=== PATIENT | female | born 1990 | race African-American/Black ===

== ENCOUNTER 2017-08-27 18:06 | Emergency (ER) | payer SELFPAY, OTHER | END 2017-08-27 19:40 | disposition home or self-care (01) | LOC: ER 18:06 | DX: S90.112A Contusion of left great toe without damage to nail, initial encounter (principal); W23.1XXA Caught, crushed, jammed, or pinched between stationary objects, initial encounter; Y93.89 Activity, other specified; Y92.89 Other specified places as the place of occurrence of the external cause; Y99.8 Other external cause status | CPT/HCPCS: 73630; 99284 ==

== ENCOUNTER 2018-11-23 21:34 | Emergency (ER) | payer SELFPAY ==
[~2018-11-23] VITALS: Ht 170.2 cm; Wt 127.0 kg
[~2018-11-23 21:34] MED LIST: NAPR-514 PO; OXYC1TAB15 PO
[2018-11-23 22:19] VITALS: BP 150/100
[2018-11-23] MEDS ORDERED: DIPHTH,PERTUSS(ACELL),TET TOX 0.5 ML DISP.SYRIN. VAX IM ONE (23:45)
[2018-11-23] MEDS ORDERED: LIDOCAINE WITH 8.4% SOD BICARB 3 ML DISP.SYRIN. INJ ONE (23:45)
--- NOTE | 2018-11-23 23:50 | PHYS DOC ---
Past Medical History Past Medical History: Abscess, Asthma (BERNARD SHIN APRN) Past Surgical History: (BERNARD SHIN APRN) Alcohol Use: None Drug Use: None (BERNARD SHIN APRN) Adult General Chief Complaint Chief Complaint: ABSCESS HPI HPI Patient is a 28 year old female with history of abscesses who presents today complaining of right axilla abscess that began 10 days ago. Denies any fever or drainage from the area. (BERNARD SHIN APRN) Review of Systems Review of Systems Constitutional: Denies fever or chills [] Musculoskeletal: Denies back pain or joint pain [] Integument: Reports right axilla abscess Neurologic: Denies headache, focal weakness or sensory changes [] All other systems were reviewed and found to be within normal limits, except as documented in this note. (BERNARD SHIN APRN) Current Medications Current Medications Current Medications Medications (Trade) Dose Ordered Sig/Garcia Start Time Stop Time Status Last Admin Dose Admin Diphtheria/ Tetanus/Acell Pertussis (Boostrix) 0.5 ml ONCE ONCE 11/23/18 23:45 11/23/18 23:46 DC 11/24/18 00:17 0.5 ML Lidocaine/Sodium Bicarbonate (Buffered Lidocaine 1%) 3 ml 1X ONCE 11/23/18 23:45 11/23/18 23:46 DC 11/24/18 00:18 3 ML (FIORELLA SUMMERS DO) Allergies Allergies Allergies Coded Allergies Type Severity Reaction Last Updated Verified aspirin Allergy Unknown 11/23/18 Yes (FIORELLA SUMMERS DO) Physical Exam Physical Exam Constitutional: Well developed, well nourished, no acute distress, non-toxic appearance. [] Skin: Right axilla with an indurated area approximately 3 x 2 cm consistent with an abscess with fluctuance, trace erythema. The area is warm tender to touch. Back: No tenderness, no CVA tenderness. [] Extremities: No tenderness, no cyanosis, no clubbing, ROM intact, no edema. [] Neurologic: Alert and oriented X 3, normal motor function, normal sensory function, no focal deficits noted. [] Psychologic: Affect normal, judgement normal, mood normal. [] (BERNARD SHIN APRN) Current Patient Data Vital Signs Vital Signs Date Time Temp Pulse Resp B/P (MAP) Pulse Ox O2 Delivery O2 Flow Rate FiO2 7/29/19 22:19 96.0 96 14 150/100 (117) 97 Room Air 96.0 (SUMMERS,FIORELLA Forbes DO) EKG EKG [] (BERNARD SHIN APRN) Radiology/Procedures Radiology/Procedures Indication: abscess right axilla Procedure: The patient was positioned appropriately. Local anesthesia was 1% buffered lidocaine. An incision was then made over the apex of the lesion with an 11 blade and moderate amount of purulent yellow material was expressed. The drainage cavity was irrigated and packed with sterile gauze. The patient�s tetanus status updated as needed. The patient tolerated the procedure poorly she screamed alot and was kicking Complications: none.[] (BERNARD SHIN APRN) Course & Med Decision Making Course & Med Decision Making Pertinent Labs and Imaging studies reviewed. (See chart for details) This is a 28-year-old female patient who presents to the ED today with right axilla abscess for 10 days. Tetanus updated. Abscess was drained by me as noted in procedures, packing was placed in the abscess. Patient was instructed to return to the ED in 2 days for wound check and packing removal. She was discharged on Bactrim and hydrocodone for pain. (BERNARD SHIN APRN) Dragon Disclaimer Dragon Disclaimer This electronic medical record was generated, in whole or in part, using a voice recognition dictation system. (BERNARD SHIN APRN) Departure Departure Impression: Primary Impression: Abscess of right axilla Disposition: 01 HOME, SELF-CARE Condition: STABLE Referrals: NO PCP (PCP) Return to the emergency room in 2 days for wound check and packing removal Patient Instructions: Abscess, Care After Additional Instructions: You have an abscess to the right axilla that was drained in the emergency room and packed. Come back to the ED in 2 days for wound check and packing removal. Take the prescribed antibiotics and pain medicines as ordered. Scripts Hydrocodone/Apap 5-325 (NORCO 5-325 TABLET) 1 Each Tablet 1 TAB PO Q6HRS, #20 TAB Prov: BERNARD SHIN APRN 11/24/18 Sulfamethoxazole/Trimethoprim (BACTRIM DS TABLET) 1 Each Tablet 1 TAB PO BID, #20 TAB Prov: BERNARD SHIN APRN 11/24/18 Attending Signature Attending Signature I have reviewed the PA/WAX ROOM SUPERVISOR's note and plan of care. I was available for consultation as needed during the patient's visit in the emergency department. I agree with the clinical impression, plan, and disposition. (FIORELLA SUMMERS DO) BERNARD SHIN APRN Nov 23, 2018 23:50 FIORELLA SUMMERS DO Nov 24, 2018 02:52
[2018-11-24] MEDS ORDERED: SULF1TAB24 PO (00:29)
[2018-11-24] MEDS ORDERED: HYDR-3164 PO (00:29)
== END 2018-11-24 00:45 | disposition home or self-care (01) ==
LOC: ER 21:34
DX: L02.411 Cutaneous abscess of right axilla (principal); J45.909 Unspecified asthma, uncomplicated; Z88.6 Allergy status to analgesic agent
CPT/HCPCS: 10060; 90471; 90715; 99283-25

== ENCOUNTER 2018-11-25 21:32 | Emergency (ER) | payer SELFPAY ==
[~2018-11-25] VITALS: Ht 170.2 cm; Wt 127.0 kg
[~2018-11-25 21:32] MED LIST changes: +HYDR-3164 PO; +SULF1TAB24 PO
--- NOTE | 2018-11-25 22:19 | PHYS DOC ---
Past Medical History Past Medical History: Abscess, Asthma (FIORELLA LAWTON APRN) Past Surgical History: (FIORELLA LAWTON APRN) Smoking: Cigarettes, Less than 1pk/day Alcohol Use: None Drug Use: None (FIORELLA LAWTON APRN) Adult General Chief Complaint Chief Complaint: WOUND CHECK HPI HPI Patient is a 28 year old female that presents for packing removal from an abscess. States that she had had a right axillary abscess drained on Friday night. Was placed on Bactrim. Rates her pain a 7 out of 10 in severity. [place] prior to arrival. States she is running a fever yesterday but however that has improved. (FIORELLA LAWTON APRN) Review of Systems Review of Systems Constitutional: Denies fever or chills [] Eyes: Denies change in visual acuity, redness, or eye pain [] HENT: Denies nasal congestion or sore throat [] Respiratory: Denies cough or shortness of breath [] Cardiovascular: No additional information not addressed in HPI [] GI: Denies abdominal pain, nausea, vomiting, bloody stools or diarrhea [] : Denies dysuria or hematuria [] Musculoskeletal: Denies back pain or joint pain [] Integument: Reports packing in abscess in R axilla. Neurologic: Denies headache, focal weakness or sensory changes [] Endocrine: Denies polyuria or polydipsia [] Complete systems were reviewed and found to be within normal limits, except as documented in this note. (FIORELLA LAWTON APRN) Allergies Allergies Allergies Coded Allergies Type Severity Reaction Last Updated Verified aspirin Allergy Unknown 11/23/18 Yes (LATOSHA MAGDALENO MD) Physical Exam Physical Exam Constitutional: Well developed, well nourished, no acute distress, non-toxic appearance. [] HENT: Normocephalic, atraumatic, bilateral external ears normal, oropharynx sudha st, no oral exudates, nose normal. [] Eyes: PERRLA, EOMI, conjunctiva normal, no discharge. [] Neck: Normal range of motion, no tenderness, supple, no stridor. [] Cardiovascular:Heart rate regular rhythm, no murmur [] Lungs & Thorax: Bilateral breath sounds clear to auscultation [] Abdomen: Bowel sounds normal, soft, no tenderness, no masses, no pulsatile masses. [] Skin: r axillary abscess that is drainage moderate amount of exudate. Back: No tenderness, no CVA tenderness. [] Extremities: No tenderness, no cyanosis, no clubbing, ROM intact, no edema. [] Neurologic: Alert and oriented X 3, normal motor function, normal sensory function, no focal deficits noted. [] Psychologic: Affect normal, judgement normal, mood normal. [] (FIORELLA LAWTON APRN) Current Patient Data Vital Signs Vital Signs Date Time Temp Pulse Resp B/P (MAP) Pulse Ox O2 Delivery O2 Flow Rate FiO2 11/25/18 21:35 98.2 96 16 162/95 (117) 97 Room Air 98.2 (LATOSHA MAGDALENO MD) EKG EKG [] (FIORELLA LAWTON APRN) Radiology/Procedures Radiology/Procedures Removed packing and repacked with idoform 1/4 inch. (FIORELLA LAWTON APRN) Course & Med Decision Making Course & Med Decision Making Pertinent Labs and Imaging studies reviewed. (See chart for details) Abscess is still draining moderate exudate. Removed and repacked abscess. Will leave on bactrim for now but obtained wound culture and send. Advised patient to come back in 2 days to have packing removed. (FIORELLA LAWTON APRN) Course & Med Decision Making Staff Physician Addendum: I was working in the ER during the course of this patient's visit. I was available for consultation as needed, but I was not directly involved in the care of this patient. (LATOSHA MAGDALENO MD) Dragon Disclaimer Dragon Disclaimer This electronic medical record was generated, in whole or in part, using a voice recognition dictation system. (FIORELLA LAWTON APRN) Departure Departure Impression: Primary Impression: Abscess of right axilla Disposition: HOME, SELF-CARE Condition: STABLE Referrals: NO PCP (PCP) Patient Instructions: Abscess, Abscess, Care After Additional Instructions: Thank you for visiting [facility]. We appreciate you trusting us with your care. If any additional problems come up don't hesitate to return to visit us. Please follow up with your primary care provider so they can plan additional care if needed and know about the problem that you had. If symptoms worsen come back to the Emergency Department. Any concerning symptoms that start such as chest pain, shortness of air, weakness or numbness on one side of the body, running high fevers or any other concerning symptoms return to the ER. Please return to ER in 2 days for wound checking and packing removal. FIORELLA LAWTON APRN Nov 25, 2018 22:19 LATOSHA MAGDALENO MD Nov 25, 2018 22:53
== END 2018-11-25 22:25 | disposition home or self-care (01) ==
LOC: ER 21:32
DX: L02.411 Cutaneous abscess of right axilla (principal); J45.909 Unspecified asthma, uncomplicated; F17.210 Nicotine dependence, cigarettes, uncomplicated; Z98.890 Other specified postprocedural states; Z88.6 Allergy status to analgesic agent
CPT/HCPCS: 87071; 87075; 99284

== ENCOUNTER 2018-11-27 22:48 | Emergency (ER) | payer SELFPAY ==
[~2018-11-27] VITALS: Ht 170.2 cm; Wt 127.0 kg
[2018-11-27 23:00] VITALS: BP 155/82
--- NOTE | 2018-11-27 23:11 | PHYS DOC ---
Past Medical History Past Medical History: Abscess, Asthma (BERNARD SHIN APRN) Past Surgical History: (BERNARD SHIN APRN) Alcohol Use: Occasionally Drug Use: None (BERNARD SHIN APRN) Adult General Chief Complaint Chief Complaint: WOUND CHECK HPI HPI Patient is a 28 year old female who presents to the ED today for wound check for right axilla abscess, patient had the abscess drained 4 days ago, she came to the ED 2 days ago and the abscess was repacked. (BERNARD SHIN APRN) Review of Systems Review of Systems Constitutional: Denies fever or chills [] Integument: Reports right axilla wound check Neurologic: Denies headache, focal weakness or sensory changes [] All other systems were reviewed and found to be within normal limits, except as documented in this note. (BERNARD SHIN APRN) Allergies Allergies Allergies Coded Allergies Type Severity Reaction Last Updated Verified aspirin Allergy Unknown 11/23/18 Yes (LATOSHA MAGDALENO MD) Physical Exam Physical Exam Constitutional: Well developed, well nourished, no acute distress, non-toxic appearance. [] Skin: Right axilla with an open wound approximately 1 cm long with small amount of drainage on the exterior dressing and mild drainage on packing. Back: No tenderness, no CVA tenderness. [] Extremities: No tenderness, no cyanosis, no clubbing, ROM intact, no edema. [] Neurologic: Alert and oriented X 3, normal motor function, normal sensory function, no focal deficits noted. [] Psychologic: Affect normal, judgement normal, mood normal. [] (BERNARD SHIN APRN) Current Patient Data Vital Signs Vital Signs Date Time Temp Pulse Resp B/P (MAP) Pulse Ox O2 Delivery O2 Flow Rate FiO2 11/27/18 23:00 98.2 88 16 155/82 (106) 98 Room Air 98.2 (LATOSHA MAGDALENO MD) EKG EKG [] (BERNARD SHIN APRN) Radiology/Procedures Radiology/Procedures [] (BERNARD SHIN APRN) Course & Med Decision Making Course & Med Decision Making Pertinent Labs and Imaging studies reviewed. (See chart for details) This is a 28-year-old female patient presenting to the ED today for wound check for an abscess that was drained on the right axilla 4 days ago. Packing was removed today. Clean dry dressing was applied. Patient was educated on how to change dressings. Follow-up with PCP as needed. Patient is on Bactrim. (BERNARD SHIN APRN) Course & Med Decision Making Staff Physician Addendum: I was working in the ER during the course of this patient's visit. I was available for consultation as needed, but I was not directly involved in the care of this patient. (LATOSHA MAGDALENO MD) Dragon Disclaimer Dragon Disclaimer This electronic medical record was generated, in whole or in part, using a voice recognition dictation system. (BERNARD SHIN APRN) Departure Departure Impression: Primary Impression: Wound check, abscess Disposition: 01 HOME, SELF-CARE Condition: STABLE Referrals: NO PCP (PCP) follow up in one week Patient Instructions: Wound Check Additional Instructions: Please change the dressing on the right axilla as needed. Continue taking Bactrim until completed. Follow-up with your doctor as needed BERNARD SHIN APRN Nov 27, 2018 23:10 LATOSHA MAGDALENO MD Nov 28, 2018 01:59
== END 2018-11-27 23:25 | disposition home or self-care (01) ==
LOC: ER 22:48
DX: Z48.00 Encounter for change or removal of nonsurgical wound dressing (principal); J45.909 Unspecified asthma, uncomplicated
CPT/HCPCS: 99283

== ENCOUNTER → 2019-07-09 | Emergency (ER) | payer SELFPAY ==
[~2019-07-09] VITALS: Ht 175.3 cm; Wt 250.0 kg
--- NOTE | 2019-07-09 22:19 | PHYS DOC ---
Past Medical History Past Medical History: Asthma Past Surgical History: Smoking Status: Current Every Day Smoker Alcohol Use: Occasionally Drug Use: None Adult General Chief Complaint Chief Complaint: SORE THROAT HPI HPI Patient is a 29 year old female who presents with sore throat this been ongoing for 3 days. The patient also and having headache, shortness of breath, and body aches of an ongoing week. Her daughter is reported to have 104 degree fever and also had similar symptoms. The patient has a history of asthma. Complete ROS were reviewed and found to be within normal limits, except as documented in the HPI Allergies Allergies Allergies Coded Allergies Type Severity Reaction Last Updated Verified aspirin Allergy Intermediate 07/09/19 Yes latex Allergy Intermediate 07/09/19 Yes Physical Exam Physical Exam Constitutional: Well developed, well nourished, no acute distress, non-toxic appearance. [] HENT: Normocephalic, atraumatic, bilateral external ears normal, oropharynx moist, tonsils are 2/4 with no oral exudates, nose normal. [] Eyes: PERRLA, EOMI, conjunctiva normal, no discharge. [] Neck: Normal range of motion, no tenderness, supple, no stridor. [] Cardiovascular:Heart rate regular rhythm, no murmur [] Lungs & Thorax: Bilateral breath sounds clear to auscultation [] Neurologic: Alert and oriented X 3, normal motor function, normal sensory function, no focal deficits noted. [] Psychologic: Affect normal, judgement normal, mood normal. [] Current Patient Data Vital Signs Vital Signs Date Time Temp Pulse Resp B/P (MAP) Pulse Ox O2 Delivery O2 Flow Rate FiO2 07/09/19 23:36 77 19 140/81 (100) 100 07/09/19 21:57 98.1 Room Air 98.1 Lab Values Laboratory Tests Test 07/09/19 22:30 Influenza Type A Antigen Negative (NEGATIVE) Influenza Type B Antigen Negative (NEGATIVE) EKG EKG [] Radiology/Procedures Radiology/Procedures [][facility] [address] [place], [place] [id number] IMAGING REPORT Signed PATIENT: JC MOSQUEDA ACCOUNT: [id number] : 1990 LOCATION: ER AGE: 29 SEX: F EXAM STATUS: REG ER ORD. PHYSICIAN: FIORELLA LAWTON APRN REASON: cough, shortness of breath, fever PROCEDURE: CHEST PA & LATERAL Study: CHEST PA LATERAL Indication: Cough, shortness of breath and fever. Comparison: None. Findings: No lobar infiltrate, pleural effusion or pneumothorax. Within normal limits cardiomediastinal silhouette and craig. Impression: No acute radiographic abnormality of the chest. Electronically signed by: ALBER WALDEN MD (07/09/2019 10:51 PM) [id number] DICTATED and SIGNED BY: ALBER WALDEN MD DATE: 07/09/19 2251 Course & Med Decision Making Course & Med Decision Making Pertinent Labs and Imaging studies reviewed. (See chart for details) We will get flu swab, strep throat, and chest x-ray. Chest x-ray is unremarkable, Strep is negative. Because the daughter is been running a high fever and the patient's been having symptoms. Work-up is negative will contact the [facility] to see if she qualifies for nash testing. Dragon Disclaimer Dragon Disclaimer This electronic medical record was generated, in whole or in part, using a voice recognition dictation system. Departure Departure Referrals: NO PCP (PCP) FIORELLA LAWTON APRN Jul 09, 2019 22:19
--- NOTE | 2019-07-09 22:54 | RAD ---
Study: CHEST PA LATERAL Indication: Cough, shortness of breath and fever. Comparison: None. Findings: No lobar infiltrate, pleural effusion or pneumothorax. Within normal limits cardiomediastinal silhouette and craig. Impression: No acute radiographic abnormality of the chest. Electronically signed by: ALBER WALDEN MD (07/09/2019 10:51 PM) [id number]
[2019-07-09 22:58] LABS: INFLUENZA A PATIENT NEGATIVE (NEGATIVE); INFLUENZA B PATIENT NEGATIVE (NEGATIVE)
[2019-07-10 00:15] VITALS: BP 145/82
== END ==
LOC: ER 21:48
DX: J02.9 Acute pharyngitis, unspecified (principal); R50.9 Fever, unspecified; R06.02 Shortness of breath; R51 Headache; J45.909 Unspecified asthma, uncomplicated; F17.200 Nicotine dependence, unspecified, uncomplicated; Z98.890 Other specified postprocedural states; Z91.040 Latex allergy status; Z88.6 Allergy status to analgesic agent
CPT/HCPCS: 71046; 87070; 87804; 87880; 99285

== ENCOUNTER 2019-09-27 19:14 | Emergency (ER) | payer SELFPAY ==
[~2019-09-27] VITALS: Ht 175.3 cm; Wt 110.0 kg
[2019-09-27] MEDS ORDERED: IV NORMAL SALINE 1000ML BAG 1,000 ML IV SCH (19:46)
--- NOTE | 2019-09-27 19:55 | PHYS DOC ---
Past Medical History Past Medical History: Asthma Past Surgical History: Smoking Status: Current Every Day Smoker Alcohol Use: Occasionally Drug Use: None General Adult EDM: Chief Complaint: HEADACHE HPI: HPI: Patient is a 29 year old female who presents with complaint of headache that started yesterday. Patient states that headache is fairly severe and she was not able to go to work today. She describes the headache as dull and throbbing in her left frontal temporal area. She denies any history of migraines. She does indicate that she has had nausea as well as photophobia. She rates pain at an 8 to a 9 out of 10. Patient states that she has been nauseated with a heada florencia but has not actually vomited. [] Review of Systems: Review of Systems: Constitutional: Denies fever or chills. [] Eyes: Denies change in visual acuity. [] Respiratory: Denies cough or shortness of breath. [] Cardiovascular: Denies chest pain or edema. [] GI: Denies abdominal pain, vomiting or diarrhea. [] Neurologic: Complains of headache without focal weakness or sensory changes. [] A full 10 point review of systems has been reviewed and is otherwise negative. Heart Score: Risk Factors: Risk Factors: DM, Current or recent (<one month) smoker, HTN, HLP, family history of CAD, obesity. Risk Scores: Score 0 - 3: 2.5% MACE over next 6 weeks - Discharge Home Score 4 - 6: 20.3% MACE over next 6 weeks - Admit for Clinical Observation Score 7 - 10: 72.7% MACE over next 6 weeks - Early Invasive Strategies Current Medications: Current Medications Medications (Trade) Dose Ordered Sig/Garcia Start Time Stop Time Status Last Admin Dose Admin Butorphanol Tartrate (Stadol) 1 mg 1X ONCE 09/27/19 20:00 09/27/19 20:01 UNV Diphenhydramine HCl (Benadryl) 25 mg 1X ONCE 09/27/19 20:00 09/27/19 20:01 UNV Metoclopramide HCl (Reglan Vial) 10 mg 1X ONCE 09/27/19 20:00 09/27/19 20:01 UNV Sodium Chloride 1,000 ml @ 1,000 mls/hr Q1H 09/27/19 19:46 09/27/19 20:45 UNV Allergies: Allergies: Allergies Coded Allergies Type Severity Reaction Last Updated Verified aspirin Allergy Intermediate 07/09/19 Yes latex Allergy Intermediate 07/09/19 Yes Physical Exam: PE: Constitutional: Well developed, well nourished, no acute distress, non-toxic appearance. [] HENT: Normocephalic, atraumatic, bilateral external ears normal, oropharynx moist, no oral exudates, nose normal. [] Eyes: PERRLA, EOMI, conjunctiva normal, no discharge. [] Neck: Normal range of motion, no tenderness, supple, no stridor. [] Cardiovascular: Regular rate and rhythm [] Lungs & Thorax: Bilateral breath sounds clear to auscultation [] Abdomen: Bowel sounds normal, soft, no tenderness. [] Skin: Warm, dry, no erythema, no rash. [] Extremities: No tenderness, no cyanosis, no clubbing, ROM intact, no edema. [] Neurologic: Alert and oriented X 3, no focal deficits noted. [] EKG: EKG: [] Radiology/Procedures: Radiology/Procedures: [] Course & Med Decision Making: Course & Med Decision Making Pertinent Labs and Imaging studies reviewed. (See chart for details) [] Dragon Disclaimer: Dragon Disclaimer: This electronic medical record was generated, in whole or in part, using a voice recognition dictation system. Departure Departure Impression: Primary Impression: Migraine Qualified Codes: G43.909 - Migraine, unspecified, not intractable, without status migrainosus Disposition: HOME, SELF-CARE Condition: STABLE Referrals: NO PCP (PCP) Patient Instructions: Migraine Headache LUTHER LÓPEZ Jr., DO Sep 27, 2019 19:55
[2019-09-27] MEDS ORDERED: diphenhydrAMINE 50 MG/ML VIAL IVP ONE (20:00)
[2019-09-27] MEDS ORDERED: BUTORPHANOL 2 MG/ML VIAL. IV ONE (20:00)
[2019-09-27] MEDS ORDERED: METOCLOPRAMIDE HCL 10 MG/2 ML VIAL. IVP ONE (20:00)
[2019-09-27 20:58] VITALS: BP 149/78
== END 2019-09-27 21:41 | disposition home or self-care (01) ==
LOC: ER 19:14
DX: O26.891 Other specified pregnancy related conditions, first trimester (principal); G43.909 Migraine, unspecified, not intractable, without status migrainosus; O99.511 Diseases of the respiratory system complicating pregnancy, first trimester; J45.909 Unspecified asthma, uncomplicated; O99.331 Smoking (tobacco) complicating pregnancy, first trimester; Z3A.10 10 weeks gestation of pregnancy; Z91.040 Latex allergy status; Z88.6 Allergy status to analgesic agent
CPT/HCPCS: 81025; 96374; 96375; 99285; J0595; J1200; J2765; J7030

== ENCOUNTER 2020-02-08 16:41 | Inpatient (IN) | payer OTHER ==
[~2020-02-08] VITALS: Ht 177.8 cm; Wt 141.0 kg
[2020-02-08] MEDS ORDERED: ONDANSETRON PF 4 MG/2 ML VIAL. IVP PRN (17:00)
[2020-02-08 17:19] LABS: BILIRUBIN,URINE NEGATIVE (NEG); CLARITY,URINE CLEAR; COLOR,URINE YELLOW; NITRITE,URINE NEGATIVE (NEG); PROTEIN,URINE NEGATIVE (NEG-TRACE)
[2020-02-08 17:24] LABS: BACTERIA,URINE MODERATE /HPF (0-FEW); BARBITURATES NEG (NEG); BENZODIAZEPINES NEG (NEG); CANNABINOIDS NEG (NEG); COCAINE NEG (NEG); METHADONE NEG (NEG); OPIATES NEG (NEG); PHENCYCLIDINE NEG (NEG)
[2020-02-08 17:25] LABS: RBC,URINE 0 /HPF (0-2)
[2020-02-08 17:27] LABS: AMPHETAMINE/METHAMPHETAMINE NEG (NEG)
[2020-02-08] MEDS ORDERED: MORPHINE SULFATE 2 MG/ML VIAL. IV ONE (17:45)
[2020-02-08 19:11] LABS: BASO % 0 % (0-3); EOS # 0.1 x10^3/uL (0.0-0.7); EOS % 1 % (0-3); HEMOGLOBIN 11.3 g/dL (12.0-15.5); LYMPH # 2.1 x10^3/uL (1.0-4.8); LYMPH % 19 % (24-48); MEAN CORPUSCULAR HEMOGLOBIN 29 pg (25-35); MEAN CORPUSCULAR HGB CONC 34 g/dL (31-37); MEAN CORPUSCULAR VOLUME 86 fL (79-100); MONO # 0.5 x10^3/uL (0.0-1.1); MONO % 4 % (0-9); NEUT # 8.4 x10^3/uL (1.8-7.7); NEUT % 76 % (31-73); PLATELET COUNT 249 x10^3/uL (140-400); RED BLOOD COUNT 3.83 x10^6/uL (3.50-5.40); RED CELL DISTRIBUTION WIDTH 13.2 % (11.5-14.5); WHITE BLOOD COUNT 11.1 x10^3/uL (4.0-11.0)
[2020-02-08] MEDS ORDERED: MORPHINE SULFATE 10 MG/ML VIAL. IV ONE (19:15)
[2020-02-08 19:19] LABS: CALCIUM 8.8 mg/dL (8.5-10.1); CREATININE 0.7 mg/dL (0.6-1.0); GFR 119.7; POTASSIUM 3.6 mmol/L (3.5-5.1)
[2020-02-08 19:24] LABS: ALBUMIN 2.5 g/dL (3.4-5.0); ALBUMIN/GLOBULIN RATIO 0.6 (1.0-1.7); TOTAL BILIRUBIN 0.2 mg/dL (0.2-1.0)
[2020-02-08] MEDS: IV RINGERS,LACTATED 1000ML 1,000 ML IV SCH (19:30)
--- NOTE | 2020-02-08 20:54 | RAD ---
OB LIMITED, RENAL COMPLETE BILATERAL History: Reason: back pain cramping / Spl. Instructions: / History: Comparison: None. Procedure: Transabdominal ultrasound images are obtained of the kidneys and bladder. Multiple grayscale images, color Doppler, and M-mode images of the uterus are obtained. Findings: Right kidney: measures 11.7 x 5.8 x 4.9 cm. Normal cortical echotexture. Corticomedullary differentiation is preserved. Mild right hydronephrosis. Left kidney: measures 12.3 x 6.7 x 5.0 cm. Normal cortical echotexture. Corticomedullary differentiation is preserved. No hydronephrosis. Urinary bladder: No urinary bladder wall thickening. Unremarkable appearance of the gallbladder. The IVC is normal caliber. The visualized abdominal aorta is normal caliber. There is a single intrauterine gestation in cephalic presentation. The placenta is posterior fundal in location without evidence of placenta previa. The amount of amniotic fluid appears appropriate. Amniotic fluid index is 7.4 cm. Biometrical data: BPD = 7.4 cm for 29 weeks 6 days. HC = 26 cm for 28 weeks 2 days. AC = 23 cm for 27 weeks 4 days. FL = 5.3 cm for 28 weeks 2 days. HC/AC ratio = 1.12. Overall, the estimated sonographic gestational age is 28 weeks and 4 days for an estimated date of delivery of April 28, 2020. Estimated weight is 1166 grams. A 4 chamber heart is identified with positive cardiac activity. The estimated heart rate is 136 beats per minute. was identified. The remainder of the structures were not evaluated on the current examination. Recommend comparison with routine anatomic screening at 18-22 weeks. Impression: 1. Mild right hydronephrosis, may relate to . Recommend follow-up. 2. Single intrauterine gestation with estimated gestational age 28 weeks 4 days with heart rate 136 bpm. Recommend comparison with routine anatomic screening at 18-22 weeks. Electronically signed by: Jovany Webb DO (02/08/2020 8:51 PM) [facility]
[2020-02-08] MEDS: BUTORPHANOL 2 MG/ML VIAL. IV PRN (21:45)
[2020-02-09] MEDS: BUTORPHANOL 2 MG/ML VIAL. IV PRN ×4 (03:14→21:20)
[2020-02-09] MEDS: IV RINGERS,LACTATED 1000ML 1,000 ML IV SCH (08:24)
[2020-02-09] MEDS: cefTRIAXone IV Push 1 GM VIAL. IVP SCH (08:56)
--- NOTE | 2020-02-09 12:39 | PDOC1 ---
MANAGER SURGICAL H&P Date of Admission: Date of Admission: Feb 08, 2020 at 16:41 History of Present Illness: EDC: 04/20/20 LMP: 07/15/19 29y @ 29.6 by L=18 who presented to L&D with intense right flank pain. The pt states that the pain began yesterday around 1300. The pain is sharp and radiates to her right inguinal region. She has never had pain like this before. No ctxs were seen on the monitor and her cervix was found to be 1 cm dilated. She was rechecked an hour later and found to be unchanged. A UA was equivocal for a UTI. The UA also did not look suspicious for a stone since no blood was seen. An u/s was performed revealing a nml fetus and no placenta abnormalities. The renal u/s also revealed mild right hydronephrosis. PMH: Asthma PSH: C/S x 1 Meds: PNV All: Latex, ASA OBHx: TC/S x 1, SAB x 2 SH: no tob, no EtOH FH: DM, crohns dz Medications: Meds: Current Medications Medications (Trade) Dose Ordered Sig/Garcia Route PRN Reason Start Time Stop Time Status Last Admin Dose Admin Ceftriaxone Sodium (Rocephin) 1 gm Q24H IVP 02/09/20 09:00 02/09/20 08:56 Allergies: Coded Allergies: aspirin (Verified Allergy, Intermediate, 07/09/19) latex (Verified Allergy, Intermediate, 07/09/19) Physical Exam: Vital Signs: Vital Signs Date Time Temp Pulse Resp B/P (MAP) Pulse Ox O2 Delivery O2 Flow Rate FiO2 02/09/20 08:24 16 02/09/20 03:14 Room Air PE: GENERAL: No apparent distress. Alert and oriented. HEENT: Head normocephalic, atraumatic. NECK: Supple LUNGS: Clear to auscultation. HEART: RRR, S1, S2 present, pulses intact ABDOMEN: Soft, positive bowel sounds. EXTREMITIES: No cyanosis or edema. NEUROLOGIC: Normal speech, normal tone PSYCHIATRIC: Normal affect, normal mood. SKIN: No ulceration. FHT: 130's +acels/no decels/mLTV [place]: quiet Labs: Laboratory Tests Test 02/08/20 17:06 10/13/20 19:00 Urine Collection Type Unknown Urine Color Yellow Urine Clarity Clear Urine pH 7.0 (<5.0-8.0) Urine Specific [place] >=1.030 (1.000-1.030) Urine Protein Negative mg/dL (NEG-TRACE) Urine Glucose (UA) Negative mg/dL (NEG) Urine Ketones (Stick) Negative mg/dL (NEG) Urine Blood Negative (NEG) Urine Nitrite Negative (NEG) Urine Bilirubin Negative (NEG) Urine Urobilinogen Dipstick 1.0 mg/dL (0.2 mg/dL) Urine Leukocyte Esterase Small (NEG) Urine RBC 0 /HPF (0-2) Urine WBC 5-10 /HPF (0-4) Urine Squamous Epithelial Cells Many /LPF Urine Bacteria Moderate /HPF (0-FEW) Urine Mucus Mod /LPF Urine Opiates Screen Neg (NEG) Urine Methadone Screen Neg (NEG) Urine Barbiturates Neg (NEG) Urine Phencyclidine Screen Neg (NEG) Urine Amphetamine/Methamphetamine Neg (NEG) Urine Benzodiazepines Screen Neg (NEG) Urine Cocaine Screen Neg (NEG) Urine Cannabinoids Screen Neg (NEG) Urine Ethyl Alcohol Neg (NEG) White Blood Count 11.1 x10^3/uL (4.0-11.0) H Red Blood Count 3.83 x10^6/uL (3.50-5.40) Hemoglobin 11.3 g/dL (12.0-15.5) L Hematocrit 33.0 % (36.0-47.0) L Mean Corpuscular Volume 86 fL (79-100) Mean Corpuscular Hemoglobin 29 pg (25-35) Mean Corpuscular Hemoglobin Concent 34 g/dL (31-37) Red Cell Distribution Width 13.2 % (11.5-14.5) Platelet Count 249 x10^3/uL (140-400) Neutrophils (%) (Auto) 76 % (31-73) H Lymphocytes (%) (Auto) 19 % (24-48) L Monocytes (%) (Auto) 4 % (0-9) Eosinophils (%) (Auto) 1 % (0-3) Basophils (%) (Auto) 0 % (0-3) Neutrophils # (Auto) 8.4 x10^3/uL (1.8-7.7) H Lymphocytes # (Auto) 2.1 x10^3/uL (1.0-4.8) Monocytes # (Auto) 0.5 x10^3/uL (0.0-1.1) Eosinophils # (Auto) 0.1 x10^3/uL (0.0-0.7) Basophils # (Auto) 0.0 x10^3/uL (0.0-0.2) Sodium Level 136 mmol/L (136-145) Potassium Level 3.6 mmol/L (3.5-5.1) Chloride Level 103 mmol/L (98-107) Carbon Dioxide Level 27 mmol/L (21-32) Anion Gap 6 (6-14) Blood Urea Nitrogen 8 mg/dL (7-20) Creatinine 0.7 mg/dL (0.6-1.0) Estimated GFR (Cockcroft-Gault) 119.7 BUN/Creatinine Ratio 11 (6-20) Glucose Level 83 mg/dL (70-99) Calcium Level 8.8 mg/dL (8.5-10.1) Total Bilirubin 0.2 mg/dL (0.2-1.0) Aspartate Amino Transferase (AST) 12 U/L (15-37) L Alanine Aminotransferase (ALT) 17 U/L (14-59) Alkaline Phosphatase 70 U/L (46-116) Total Protein 7.0 g/dL (6.4-8.2) Albumin 2.5 g/dL (3.4-5.0) L Albumin/Globulin Ratio 0.6 (1.0-1.7) L Laboratory Tests 02/08/20 19:00 Laboratory Tests 02/08/20 19:00 Laboratory Tests 02/08/20 19:00 Assessment & Plan: A/P 29y @ 29.6 by L=18 1.) Right pyelonephritis UA equivocal and WBC only 11.1, but with right flank and pain and hydronephrosis. Not likely PTL (due to no ctxs on toco and SVE unchanged since admission), no abruption (no bleeding or signs on u/s) or nephrolithiasis (with no blood in UA and no stone on u/s). Started on Rocephin 1gm q24hrs. 2.) Prev C/S x 1 desires repeat 3.) IUGR <3%ile on growth u/s performed on 01/26/20, wkly testing with [facility] 4.) Anemia Hgb 11.3 5.) Asthma 6.) DPS pvt insurance 7.) TDAP given 02/02/20 8.) Latex allergy 9.) ASA allergy 10.) Fetus cat I FHT 11.) GBS unk FIORELLA CHRISTIANSON MD Feb 09, 2020 12:39
[2020-02-09 13:15] LABS: BASO % 0 % (0-3); EOS # 0.1 x10^3/uL (0.0-0.7); EOS % 1 % (0-3); HEMATOCRIT 33.6 % (36.0-47.0); HEMOGLOBIN 11.3 g/dL (12.0-15.5); LYMPH # 1.9 x10^3/uL (1.0-4.8); LYMPH % 21 % (24-48); MEAN CORPUSCULAR HEMOGLOBIN 29 pg (25-35); MEAN CORPUSCULAR HGB CONC 34 g/dL (31-37); MEAN CORPUSCULAR VOLUME 86 fL (79-100); MONO # 0.3 x10^3/uL (0.0-1.1); MONO % 4 % (0-9); NEUT # 6.6 x10^3/uL (1.8-7.7); NEUT % 73 % (31-73); PLATELET COUNT 263 x10^3/uL (140-400); RED BLOOD COUNT 3.89 x10^6/uL (3.50-5.40); RED CELL DISTRIBUTION WIDTH 13.2 % (11.5-14.5)
[2020-02-09 18:15] VITALS: BP 158/92
[2020-02-09 20:00] VITALS: BP 121/72
[2020-02-09] MEDS: ACETAMINOPHEN 325 MG TABLET. PO PRN (21:20)
--- NOTE | 2020-02-09 21:40 | NUR ---
EFM on x 2 (doppler and toco). Baseline FHT's 120's, moderate variability and reactive. No decels noted. No contractions or any uterine activity noted. External monitors on from 2103 to 2138.
[2020-02-10 01:30] VITALS: BP 117/68
[2020-02-10 06:00] VITALS: BP 118/69
[2020-02-10] MEDS: cefTRIAXone IV Push 1 GM VIAL. IVP SCH (08:11)
[2020-02-10] MEDS: ACETAMINOPHEN 325 MG TABLET. PO PRN ×4 (08:11→18:40)
[2020-02-10 08:29] LABS: BASO % 1 % (0-3); EOS # 0.1 x10^3/uL (0.0-0.7); EOS % 2 % (0-3); HEMATOCRIT 32.2 % (36.0-47.0); HEMOGLOBIN 10.8 g/dL (12.0-15.5); LYMPH # 1.8 x10^3/uL (1.0-4.8); LYMPH % 20 % (24-48); MEAN CORPUSCULAR HEMOGLOBIN 29 pg (25-35); MEAN CORPUSCULAR HGB CONC 34 g/dL (31-37); MEAN CORPUSCULAR VOLUME 86 fL (79-100); MONO # 0.4 x10^3/uL (0.0-1.1); MONO % 5 % (0-9); NEUT # 6.8 x10^3/uL (1.8-7.7); NEUT % 74 % (31-73); PLATELET COUNT 240 x10^3/uL (140-400); RED BLOOD COUNT 3.73 x10^6/uL (3.50-5.40); RED CELL DISTRIBUTION WIDTH 13.3 % (11.5-14.5); WHITE BLOOD COUNT 9.2 x10^3/uL (4.0-11.0)
[2020-02-10] MEDS ORDERED: OXYC1TAB15 PO (09:09)
[2020-02-10] MEDS ORDERED: NITR100C62 PO (09:09)
--- NOTE | 2020-02-10 10:08 | PDOC ---
[facility]UM[facility] ROOM ATTENDANT PROGRESS NOTE Date of Service: DATE: 02/10/20 TIME: 10:07 Subjective: Pt feels a little better, but still with pain. Objective: Vital Signs: Vital Signs Date Time Temp Pulse Resp B/P (MAP) Pulse Ox O2 Delivery O2 Flow Rate FiO2 02/09/20 08:24 16 02/09/20 16:52 Room Air 02/09/20 18:15 98.1 72 158/92 (114) 94 98.1 Vital Signs Date Time Temp Pulse Resp B/P (MAP) Pulse Ox O2 Delivery O2 Flow Rate FiO2 02/10/20 06:00 98.2 77 18 118/69 (85) 94 Room Air 98.2 Labs: Laboratory Tests Test 02/09/20 12:49 02/10/20 07:52 White Blood Count 9.0 x10^3/uL (4.0-11.0) 9.2 x10^3/uL (4.0-11.0) Red Blood Count 3.89 x10^6/uL (3.50-5.40) 3.73 x10^6/uL (3.50-5.40) Hemoglobin 11.3 g/dL (12.0-15.5) L 10.8 g/dL (12.0-15.5) L Hematocrit 33.6 % (36.0-47.0) L 32.2 % (36.0-47.0) L Mean Corpuscular Volume 86 fL (79-100) 86 fL (79-100) Mean Corpuscular Hemoglobin 29 pg (25-35) 29 pg (25-35) Mean Corpuscular Hemoglobin Concent 34 g/dL (31-37) 34 g/dL (31-37) Red Cell Distribution Width 13.2 % (11.5-14.5) 13.3 % (11.5-14.5) Platelet Count 263 x10^3/uL (140-400) 240 x10^3/uL (140-400) Neutrophils (%) (Auto) 73 % (31-73) 74 % (31-73) H Lymphocytes (%) (Auto) 21 % (24-48) L 20 % (24-48) L Monocytes (%) (Auto) 4 % (0-9) 5 % (0-9) Eosinophils (%) (Auto) 1 % (0-3) 2 % (0-3) Basophils (%) (Auto) 0 % (0-3) 1 % (0-3) Neutrophils # (Auto) 6.6 x10^3/uL (1.8-7.7) 6.8 x10^3/uL (1.8-7.7) Lymphocytes # (Auto) 1.9 x10^3/uL (1.0-4.8) 1.8 x10^3/uL (1.0-4.8) Monocytes # (Auto) 0.3 x10^3/uL (0.0-1.1) 0.4 x10^3/uL (0.0-1.1) Eosinophils # (Auto) 0.1 x10^3/uL (0.0-0.7) 0.1 x10^3/uL (0.0-0.7) Basophils # (Auto) 0.0 x10^3/uL (0.0-0.2) 0.0 x10^3/uL (0.0-0.2) Laboratory Tests 02/09/20 12:49 02/10/20 07:52 Laboratory Tests 02/10/20 07:52 Physical Exam: GENERAL: No apparent distress. Alert and oriented. HEENT: Head normocephalic, atraumatic. NECK: Supple LUNGS: Clear to auscultation. HEART: RRR, S1, S2 present, pulses intact ABDOMEN: Soft, positive bowel sounds. EXTREMITIES: No cyanosis or edema. NEUROLOGIC: Normal speech, normal tone PSYCHIATRIC: Normal affect, normal mood. SKIN: No ulceration. Assessment & Plan: A/P 29y @ 30.0 by L=18 1.) Right pyelonephritis UA equivocal, Ucx neg. AF throughout hospitalization. WBC 11.1 -> 9.2, but with right flank pain and hydronephrosis. Not likely PTL (due to no ctxs on toco and SVE unchanged since admission), no abruption (no bleeding or signs on u/s) or nephrolithiasis (with no blood in UA and no stone on u/s). s/p Rocephin x 2 2.) Prev C/S x 1 desires repeat 3.) IUGR <3%ile on growth u/s performed on 01/26/20, wkly testing with [facility], missed this wks b/c hospitalized 4.) Anemia Hgb 11.3 5.) Asthma 6.) DPS pvt insurance 7.) TDAP given 02/02/20 8.) Latex allergy 9.) ASA allergy 10.) Fetus cat I FHT 11.) GBS unk 12.) D/c home FIORELLA CHRISTIANSON MD Feb 10, 2020 10:08
--- NOTE | 2020-02-10 10:33 | NUR ---
EFM on. FHT baseline 130's, moderate variability, accels noted with movement. No contractions noted or palpated. No FHT decels.
[2020-02-10 11:32] VITALS: BP 107/65
--- NOTE | 2020-02-10 18:52 | NUR ---
Discharge Discharge instructions given to patient and at this time no questions or concerns noted. To follow up in [address] Webb
[2020-02-10 18:59] VITALS: BP 115/68
--- NOTE | 2020-02-11 11:19 | DS ---
DATE OF DISCHARGE: 02/10/2020 ADMISSION DIAGNOSES: 1. Intrauterine at 29 weeks and 5 days by LMP equal to 18-week ultrasound. 2. Right flank pain. 3. Previous section x 1. 4. Intrauterine growth restriction less than the 3rd percentile. 5. Anemia. 6. Asthma. 7. LATEX ALLERGY. 8. ASPIRIN ALLERGY. 9. GBS unknown. DISCHARGE DIAGNOSES: 1. Intrauterine at 29 weeks and 5 days by LMP equal to 18-week ultrasound. 2. Right flank pain. 3. Previous section x 1. 4. Intrauterine growth restriction less than the 3rd percentile. 5. Anemia. 6. Asthma. 7. LATEX ALLERGY. 8. ASPIRIN ALLERGY. 9. GBS unknown. PROCEDURE: None. BRIEF HOSPITAL COURSE: The patient is a 29-year-old 4, para 1-0-2-1, who presented to Labor and Delivery at 29 weeks and 5 days by LMP equal to 18-week ultrasound with intense right flank pain. The pain began that day around 1:00. She describes the pain as sharp and radiating to her right and inguinal region. The patient had never had any pain like that before. On the monitor, no contractions were picking up. The patient's cervix remained the same. An ultrasound was performed revealing no or placental anomalies outside of the IUGR and the renal ultrasound did show hydronephrosis solely on the right. UA was sent, which revealed no blood and was equivocal for a urinary tract infection. The patient was started on Rocephin the next day since no identifiable source of her pain could be found and she was treated as a presumptive pyelonephritis. The patient's white count on admission was 11.1 with a slight shift. The patient had no fevers during the hospitalization. The patient reported feeling somewhat better in the hours following the dose of the pyelonephritis, but later that evening, the pain intensified, although it was better than during admission. The patient's urinary culture ultimately came back as general shanel, but she remained treated for a urinary tract infection. By hospital day #2, the patient was feeling somewhat better, but desired discharge home. The patient was subsequently discharged and will add appointment. Follow up with me on 02/17/2020 at [facility] [place]. DISCHARGE INSTRUCTIONS: No restrictions. CALL IF: The patient was to call if she did have fevers, chills, nausea, vomiting, increase in her flank pain or any additional questions or concerns. FOLLOWUP APPOINTMENT: The patient was to follow up on 02/17/2020 for her routine visit. DISCHARGE MEDICATIONS: The patient was given a prescription for Macrobid 100 mg 14 pills. FIORELLA CHRISTIANSON MD DR: CONNOR/len JOB#: [id number] / [id number] [place]
== END 2020-02-10 19:00 | disposition home or self-care (01) | DRG 832 ==
LOC: OBSVTOIN 16:41 → 3 SO LND 16:41 → 3 NORTH 02-09 18:00
PROVIDERS: ADMIT Obstetrics & Gynecology; ATTEND Obstetrics & Gynecology
DX: O23.03 Infections of kidney in pregnancy, third trimester (principal); N13.6 Pyonephrosis; O36.5930 Maternal care for other known or suspected poor fetal growth, third trimester, not applicable or unspecified; D64.9 Anemia, unspecified; O99.513 Diseases of the respiratory system complicating pregnancy, third trimester; J45.909 Unspecified asthma, uncomplicated; O99.013 Anemia complicating pregnancy, third trimester; Z37.0 Single live birth; Z3A.29 29 weeks gestation of pregnancy; Z91.040 Latex allergy status; Z88.6 Allergy status to analgesic agent; Z83.3 Family history of diabetes mellitus; Z84.89 Family history of other specified conditions
CPT/HCPCS: 36415; 76770; 76815; 80053; 80307; 81001; 85025; 86850; 86900; 86901; 87086; J0595; J0696; J2270; J7120; G0378

== ENCOUNTER → 2020-03-27 | Outpatient (CLI) | payer OTHER ==
[~2020-03-27] MED LIST changes: +DOCU-109 PO; +FERR325T14 PO; +IBUP-1060 PO; +NITR100C62 PO
== END ==
LOC: LAB 14:27
PROVIDERS: ATTEND Obstetrics & Gynecology
DX: Z01.812 Encounter for preprocedural laboratory examination (principal); Z20.828 Contact with and (suspected) exposure to other viral communicable diseases
CPT/HCPCS: U0003